=== PATIENT | female | born 1965 | race Caucasian/White ===

== ENCOUNTER 2018-03-16 15:13 | Outpatient (CLI) | payer OTHER | END 2018-03-16 16:00 | disposition home or self-care (01) | LOC: NUCLEAR 15:13 | DX: I87.2 Venous insufficiency (chronic) (peripheral) (principal) ==

== ENCOUNTER 2018-03-30 14:28 | Outpatient (CLI) | payer OTHER | END 2018-03-30 14:36 | disposition home or self-care (01) | LOC: RAD 501 14:28 | DX: S92.301A Fracture of unspecified metatarsal bone(s), right foot, initial encounter for closed fracture (principal) ==